=== PATIENT | male | born 1995 | race Caucasian/White ===

== ENCOUNTER 2018-11-06 12:45 | Day surgery (SDC) | payer OTHER ==
[~2018-11-06] VITALS: Ht 188 cm; Wt 94.2 kg
[2018-11-06] MEDS ORDERED: LACTATED RINGERS 1,000 ML IV SCH (13:36)
[2018-11-06] MEDS ORDERED: LIDOCAINE/PF 1%, 30ML ONE (13:36)
[2018-11-06] MEDS ORDERED: ACETAMINOPHEN 500 MG TABLET PO ONE (14:00)
[2018-11-06] MEDS ORDERED: GABAPENTIN 300 MG CAPSULE PO ONE (14:00)
[2018-11-06] MEDS ORDERED: ONDANSETRON ODT 8 MG PO ONE (14:00)
[2018-11-06] MEDS ORDERED: DIAZEPAM 5 MG TABLET PO ONE (14:00)
[2018-11-06] MEDS ORDERED: OxyconTIN ER 20 MG TAB.ER PO ONE (14:00)
[2018-11-06] MEDS ORDERED: SCOPOLAMINE PATCH, 1.5MG PATCH.TD72 TD ONE (14:00)
[2018-11-06] MEDS ORDERED: MIDAZOLAM 1 MG/ML, 2ML ONE (14:17)
[2018-11-06] MEDS ORDERED: FENTANYL PF 250 MCG/5ML ONE (14:17)
[2018-11-06 14:23] VITALS: BP 125/75
[2018-11-06] MEDS ORDERED: NONE PER PT (14:23)
[2018-11-06] MEDS ORDERED: KETOROLAC 30 MG/1 ML ONE (15:15)
[2018-11-06] MEDS ORDERED: HYDROmorphone 2 MG/ML, 1ML IVPush PRN (16:00)
[2018-11-06] MEDS ORDERED: PROMETHAZINE 25 MG/ML, 1ML IV PRN (16:00)
[2018-11-06] MEDS ORDERED: ALBUTEROL/IPRATROPIUM 2.5MG/0.5MG, 3 ML NPPB PRN (16:00)
[2018-11-06] MEDS ORDERED: MEPERIDINE/PF 25MG/0.5ML IVPush PRN (16:00)
[2018-11-06] MEDS ORDERED: MIDAZOLAM 1 MG/ML, 2ML IV PRN (16:00)
[2018-11-06] MEDS ORDERED: LABETALOL 5MG/ML, 20ML IV PRN (16:00)
[2018-11-06] MEDS ORDERED: ONDANSETRON 2MG/ML, 2ML IV PRN (16:00)
[2018-11-06] MEDS ORDERED: DIAZEPAM 5 MG/ML, 2ML IVPush PRN (16:00)
[2018-11-06] MEDS ORDERED: BUPIVACAINE/PF 0.5% ONE (17:36)
[2018-11-06] MEDS ORDERED: CEFAZOLIN 1,000 MG ONE (17:36)
[2018-11-06] MEDS ORDERED: DEXAMETHASONE 4 MG/ML, 1ML ONE (17:36)
[2018-11-06] MEDS ORDERED: PROPOFOL 10 MG/ML, 20ML ONE (17:36)
[2018-11-06] MEDS ORDERED: FENTANYL PF 100 MCG/2ML ONE ×2 (17:43→19:01)
[2018-11-06] MEDS ORDERED: MEPERIDINE/PF 50 MG/ML ONE (18:14)
[2018-11-06] MEDS: FENTANYL PF 100 MCG/2ML IV PRN ×2 (18:21→18:32)
[2018-11-06] MEDS ORDERED: OXYcodone 5 MG/5 ML ORAL.SOL UDC ONE (18:38)
[2018-11-06] MEDS: OXYcodone 5 MG/5 ML ORAL.SOL UDC PO PRN ×2 (18:39→19:13)
[2018-11-06] MEDS ORDERED: OXYcodone/APAP 5/325MG TABLET PO PRN (21:00)
[2018-11-06] MEDS ORDERED: PROMETHAZINE 25 MG/ML, 1ML IM PRN (21:00)
[2018-11-06] MEDS ORDERED: KETOROLAC 30 MG/1 ML IVPush SCH (21:00)
[2018-11-06] MEDS ORDERED: APAP/CODEINE 300/30MG TABLET PO PRN (21:00)
[2018-11-06] MEDS ORDERED: ACETAMINOPHEN 325 MG TABLET PO PRN (21:00)
[2018-11-06] MEDS ORDERED: ONDANSETRON 2MG/ML, 2ML IVPush PRN (21:00)
[2018-11-06] MEDS ORDERED: morphine SULFATE 10 MG/ML, 1ML IVPush PRN (21:00)
== END 2018-11-06 23:00 | disposition home or self-care (01) ==
LOC: OUT 12:45 → 4NOR 19:00 → OUT 23:00
PROVIDERS: ATTEND Orthopaedic Surgery
DX: S83.512A Sprain of anterior cruciate ligament of left knee, initial encounter (principal); S83.282A Other tear of lateral meniscus, current injury, left knee, initial encounter; X58.XXXA Exposure to other specified factors, initial encounter; Y93.89 Activity, other specified; Y92.89 Other specified places as the place of occurrence of the external cause; Y99.8 Other external cause status
CPT/HCPCS: 29881; 29888; 64447; C1713; J0690; J1100; J1885; J2175; J2250; J2704; J3010; J3490; J7120; Q0162; G0378